=== PATIENT | female | born 1995 | race Caucasian/White ===

== ENCOUNTER 2019-10-07 19:11 | Emergency (ER) | payer SELFPAY ==
[~2019-10-07] VITALS: Ht 162.6 cm; Wt 58.8 kg
[2019-10-07] MEDS ORDERED: LIDOCAINE 1% INJ 20 ML 20 ML VIAL ONE (19:13)
[2019-10-07 19:20] VITALS: BP 124/74
--- NOTE | 2019-10-07 19:20 | ED Integumentary General ---
General Stated Complaint: RIGHT THUMB LAC/DOG BITE History of Present Illness Date Seen by Provider: Oct 07, 2019 Time Seen by Provider: 19:10 Initial Comments This patient presents to the emergency department for thumb injury on the right related to breaking up a dog fight. Patient states her personal and cousins dog got into a fight. Both shots up-to-date on both animals. Patient has a laceration to the right thumb extending into the nail bed. We'll do medical evaluation treatment is needed Timing/Duration: just prior to arrival Severity: moderate Location: hands Allergies and Home Medications Allergies Coded Allergies: No Known Allergies (Verified Allergy, Unknown, 10/07/19) Patient Home Medication List Home Medication List Reviewed: Yes Review of Systems Review of Systems Constitutional: No no symptoms reported, No see HPI, No chills, No diaphoresis, No dizziness, No fever, No malaise, No weakness, No weight gain, No weight loss, No other EENTM: No see HPI, No no symptoms reported, No ear discharge, No hearing loss, No ear pain, No blurred vision, No double vision, No eye pain, No tearing, No vision loss, No dental problems, No hoarseness, No mouth pain, No mouth swelling, No epistaxis, No nose congestion, No nose pain, No throat pain, No throat swelling, No other Respiratory: No no symptoms reported, No see HPI, No cough, No dyspnea on exertion, No hemoptysis, No orthopnea, No phlegm, No short of breath, No stri denny, No wheezing, No other Cardiovascular: No no symptoms reported, No see HPI, No chest pain, No edema, N o Hx of Intervention, No palpitations, No syncope, No vascular heart diseas, No other Gastrointestinal: No RUQ, No LUQ, No RLQ, No LLQ, No no symptoms reported, No see HPI, No abdominal pain, No constipation, No diarrhea, No dysphagia, No hematemesis, No heartburn, No jaundice, No loss of appetite, No melena, No nausea, No vomiting, No other Genitourinary: No no symptoms reported, No see HPI, No decreased output, No discharge, No dysuria, No frequency, No hematuria, No hesitancy, No incontinence, No nocturia, No pain, No other Musculoskeletal: No no symptoms reported; see HPI; No back pain, No gout, No joint pain, No joint swelling, No muscle pain, No muscle stiffness, No muscle cramps, No muscle twitching, No muscle weakness, No neck pain; other Skin: No no symptoms reported; see HPI; No change in color, No change in hair/nails, No dryness, No hx of skin cancer, No lesions, No lumps, No pruritus, No rash; other All Other Systems Reviewed Negative Unless Noted: Yes Past Pzapbgq-Mongfc-Gvwubf Hx Patient Social History Recent Foreign Travel: No Contact w/Someone Who Travel: No Physical Exam Vital Signs Vital Signs - First Documented 10/07/19 19:20 Temp 37.5 Pulse 120 Resp 19 B/P (MAP) 124/74 (91) O2 Delivery Room Air Capillary Refill : General Appearance: WD/WN, no apparent distress Cardiovascular: normal peripheral pulses, regular rate, rhythm, no edema, no gallop, no JVD, no murmur Respiratory: chest non-tender, lungs clear, normal breath sounds, no respiratory distress, no accessory muscle use Extremities: normal range of motion, non-tender, normal inspection, no pedal edema, no calf tenderness, normal capillary refill, pelvis stable, other (laceration to the lateral right thumb extending about 3 cm to the nailbed no active bleeding.) Skin: normal color, warm/dry, other (see above) Procedures/Interventions Wound Location: Upper Extremities (right thumb) Wound's Depth, Shape: irregular Wound Explored: clean Betadine Prep?: Yes Anesthesia: 1% Lidocaine Suture: Ethlion Suture Size: 4-0 F5-2 Number of Sutures: 2 Progress 2 sutures placed laterally the right thumb. Unable to suture posterior to her proximal nailbed and nail bed involvement. Patient states understanding Progress/Results/Core Measures Results/Orders My Orders Orders - COOPER SOLANO MD Finger(S) (10/07/19 19:16) Lidocaine 1% Inj 20 Ml (Xylocaine 1% Inj (10/07/19 19:13) Dipht,Pertuss(Acell),Tet Adult (Boostrix (10/07/19 19:30) Ceftriaxone For Im Use (Rocephin For Im (10/07/19 19:30) Medications Given in ED Current Medications Medications Dose Ordered Sig/Sergio Route Start Time Stop Time Status Last Admin Dose Admin Ceftriaxone Sodium 500 mg ONCE ONCE IM 10/07/19 19:30 10/07/19 19:31 DC 10/07/19 19:46 500 MG Diphtheria/ Tetanus/Acell Pertussis 0.5 ml ONCE ONCE IM 10/07/19 19:30 10/07/19 19:31 DC 10/07/19 19:46 0.5 ML Lidocaine HCl 20 ml STK-MED ONCE .ROUTE 10/07/19 19:13 10/07/19 19:18 DC 10/07/19 19:47 20 ML Vital Signs/I&O 10/07/19 19:20 Temp 37.5 Pulse 120 Resp 19 B/P (MAP) 124/74 (91) O2 Delivery Room Air Progress Progress Note : Time: 20:01 Progress Note Keep wound clean and dry and covered. Soaking into some water twice daily and pat dry and used Flor about appointment before reapplying bandage sutures to be removed in 12 days. Departure Impression Primary Impression: Dog bite Disposition: HOME, SELF-CARE Condition: Stable Departure-Patient Inst. Decision time for Depature: 20:02 Referrals: NO,LOCAL PHYSICIAN (PCP) Primary Care Physician Patient Instructions: Animal Bites (DC) Add. Discharge Instructions: Keep wound clean and dry and covered. Soaking into some water twice daily and pat dry and used Flor about appointment before reapplying bandage sutures to be removed in 12 days. Scripts Diclofenac Sodium (Diclofenac Sodium) 75 Mg Tablet.dr 75 MG PO BID for 10 Days, #20 TAB 0 Refills Prov: COOPER SOLANO MD 10/07/19 Amoxicillin/Potassium Clav (Augmentin 875-125 Tablet) 1 Each Tablet 1 EACH PO BID, #14 TAB 0 Refills Prov: COOPER SOLANO MD 10/07/19 COOPER SOLANO MD Oct 07, 2019 19:20
[2019-10-07] MEDS ORDERED: cefTRIAXone 250 MG/ML vial (IM ONLY) IM ONE (19:30)
[2019-10-07] MEDS ORDERED: TETANUS,DIPTH,PERTUSS P/F (BOOSTRIX) 0.5 ML VIAL IM ONE (19:30)
--- NOTE | 2019-10-07 19:56 | Diagnostic Imaging Report ---
CLINICAL INDICATION: Patient was trying to break up a dogfight, injury to right thumb. EXAM: X-ray of the right hand, 3 views. COMPARISON: None. FINDINGS AND IMPRESSION: There is no acute fracture or dislocation. There is no significant bone or joint abnormality. There is no radiodense foreign object. There is a bony ossicle seen adjacent to the 5th MCP joint region. Dictated by: Dictated on workstation # [id number]
[2019-10-07] MEDS ORDERED: DICL75TA2 PO (20:03)
[2019-10-07] MEDS ORDERED: AMOX-358 PO (20:03)
== END 2019-10-07 20:10 | disposition home or self-care (01) ==
LOC: ER FS 19:12
DX: S61.111A Laceration without foreign body of right thumb with damage to nail, initial encounter (principal); Z23 Encounter for immunization; W54.0XXA Bitten by dog, initial encounter
CPT/HCPCS: 12001; 73140; 90715

== ENCOUNTER 2019-10-19 12:31 | Emergency (ER) | payer SELFPAY ==
[~2019-10-19 12:31] MED LIST: AMOX-358 PO; DICL75TA2 PO
[2019-10-19 12:42] VITALS: BP 117/65
== END 2019-10-19 12:45 | disposition home or self-care (01) ==
LOC: EDUNIT# 12:31 → ER FS 12:32
DX: S61.011D Laceration without foreign body of right thumb without damage to nail, subsequent encounter (principal); X58.XXXD Exposure to other specified factors, subsequent encounter

== ENCOUNTER 2019-11-12 16:16 | Emergency (ER) | payer SELFPAY ==
--- NOTE | 2019-11-12 17:00 | NUR ---
CALLED PT ON THE PHONE TO HAVE HER COME TO THE DOOR TO BE SEEN. PT STATES SHE IS ON HER WAY URGENT CARE AND DOES NOT WANT TO BE SEEN.
== END 2019-11-12 17:01 | disposition left against medical advice (07) ==
LOC: EDUNIT# 16:16 → ER 16:17
DX: R11.0 Nausea (principal); R05 Cough; R09.81 Nasal congestion